=== PATIENT | female | born 1950 | race African-American/Black ===

== ENCOUNTER 2017-03-13 05:35 | Day surgery (SDC) | payer OTHER ==
[~2017-03-13] VITALS: Ht 157.5 cm; Wt 82.3 kg
[~2017-03-13 05:35] MED LIST: ALBU8HFA IH; ALLO300 PO; AMIO100T4 PO; AMIT25TA9 PO; ASPI81 PO; ATOR40TA28 PO; CARV3 PO; DOCU250C91 PO; FLUT50DI2 IH; FURO20 PO; LEVO50CA2 PO; LOSA25TA21 PO; MOME13HF IH; NITR.4 SL; OMEG1CAP2 PO; OMEP20 PO; POTA20TA10 PO; SODIUM CHLORIDE 0.9% 1,000 ML IV ONE; TICA90TA PO
[2017-03-13] MEDS ORDERED: SODIUM CHLORIDE 0.9% 1,000 ML IV ONE (05:43)
[2017-03-13 06:51] LABS: BASOPHILS % (AUTO) 0.5 % (0.0-2.0); EOSINOPHILS % (AUTO) 3.9 % (1.0-6.0); HEMATOCRIT 31.1 % (36-46); HEMOGLOBIN 10.5 g/dL (12.0-16.0); LYMPHOCYTES # (AUTO) 1.5 K/uL (1.0-4.8); LYMPHOCYTES % (AUTO) 34.1 % (22.0-44.0); MEAN CORPUSCULAR HEMOGLOBIN 31.4 pg (26.0-34.0); MEAN CORPUSCULAR HGB CONC 33.6 G/dL (31.0-37.0); MEAN CORPUSCULAR VOLUME 93 fL (80-100); MONOCYTES # (AUTO) 0.3 K/uL (0.1-1.0); MONOCYTES % (AUTO) 7.6 % (2.0-9.0); NEUTROPHILS # (AUTO) 2.4 K/uL (1.8-7.7); NEUTROPHILS % (AUTO) 53.9 % (40.0-70.0); PLATELET COUNT (AUTO) 254 K/uL (150-450); RED BLOOD CELL COUNT(AUTO) 3.34 MIL/uL (4.00-5.20); RED CELL DISTRIBUTION WIDTH 15.3 % (11.5-14.5); WHITE BLOOD COUNT (AUTO) 4.4 K/uL (4.5-11.0)
[2017-03-13 07:02] LABS: INR 1.1 (0.9-1.1); PROTHROMBIN TIME 11.8 SEC (9.4-11.6)
[2017-03-13 07:04] LABS: ANION GAP 8 mmol/L (8-16); CALCIUM, TOTAL 8.8 mg/dL (8.8-10.5); CARBON DIOXIDE 28 mmol/L (22-29); CHLORIDE 104 mmol/L (98-107); CREATININE 1.01 mg/dL (0.60-1.30); GLOMERULAR FILTR. RATE CALC > 60 mL/min (>60); POTASSIUM 3.9 mmol/L (3.5-5.1); SODIUM SERUM 140 mmol/L (136-145); UREA NITROGEN, BLOOD 14 mg/dL (7-18)
[2017-03-13 07:10] LABS: ALANINE AMINOTRANSFERASE 21 U/L (12-78); ALBUMIN 3.8 g/dL (3.4-5.0); ASPARTATE AMINOTRANSFERASE 28 U/L (15-37); BILIRUBIN,TOTAL 0.5 mg/dL (0.1-1.0); TOTAL PROTEIN, SERUM 7.1 g/dL (6.4-8.2)
[2017-03-13] MEDS ORDERED: LIDOCAINE HCL/PF 1% 30 ML VIAL ONE ×2 (07:19→08:20)
[2017-03-13] MEDS ORDERED: HEPARIN SODIUM 1000 UNITS/NS 500 ML ONE (07:19)
[2017-03-13] MEDS ORDERED: IODIXANOL 320 MG/ML 50 ML VIAL ONE ×4 (07:19→08:57)
[2017-03-13 07:34] VITALS: BP 116/87
[2017-03-13] MEDS ORDERED: MIDAZOLAM HCL 2 MG/2 ML VIAL ONE ×2 (07:47→08:27)
[2017-03-13] MEDS ORDERED: HEPARIN SODIUM 1000 UNITS/NS 500 ML IV ONE (08:00)
[2017-03-13] MEDS ORDERED: IODIXANOL 320 MG/ML 50 ML VIAL IARTER ONE ×4 (08:00→09:45)
[2017-03-13] MEDS ORDERED: MIDAZOLAM HCL 2 MG/2 ML VIAL IVP ONE ×3 (08:00→08:45)
[2017-03-13] MEDS ORDERED: LIDOCAINE HCL/PF 1% 30 ML VIAL INJ ONE (08:00)
[2017-03-13] MEDS ORDERED: HEPARIN SODIUM,PORCINE 5,000 UNITS/ML VIAL SQ ONE ×2 (08:45→09:45)
[2017-03-13 09:59] VITALS: BP 140/75
[2017-03-13] MEDS ORDERED: HEPARIN SODIUM,PORCINE 5,000 UNITS/ML VIAL IVP ONE (10:00)
[2017-03-13] MEDS ORDERED: IBUPROFEN 800 MG TABLET PO ONE (11:00)
== END 2017-03-13 14:00 | disposition home or self-care (01) ==
LOC: CATHLAB 05:35 → EDSTATUS 07:30 → CATHLAB 14:00
PROVIDERS: ATTEND Radiology Vascular & Interventional Radiology
DX: I70.211 Atherosclerosis of native arteries of extremities with intermittent claudication, right leg (principal); I70.92 Chronic total occlusion of artery of the extremities; I10 Essential (primary) hypertension; E78.5 Hyperlipidemia, unspecified; E03.9 Hypothyroidism, unspecified; J45.909 Unspecified asthma, uncomplicated; M10.9 Gout, unspecified; Z88.6 Allergy status to analgesic agent; Z79.01 Long term (current) use of anticoagulants; Z98.51 Tubal ligation status; Z90.710 Acquired absence of both cervix and uterus; Z95.5 Presence of coronary angioplasty implant and graft; Z87.891 Personal history of nicotine dependence; Z86.79 Personal history of other diseases of the circulatory system
CPT/HCPCS: 36140; 36415; 37221; 80053; 85025; 85610; 85730; 93005; C1725; C1760; C1769; C1876; C1887; J1644 ×2; J2250; J3490; J7030; Q9967; 36200; 37205; 75630; 75716; 75962

== ENCOUNTER 2022-08-16 06:56 | Inpatient (IN) | payer OTHER ==
[~2022-08-16] VITALS: Ht 157.5 cm; Wt 87.4 kg
[~2022-08-16 06:56] MED LIST changes: +ALLO-45 PO; -ALLO300 PO; +AMIT25TA10 PO; -AMIT25TA9 PO; +APIX5TAB PO; -ASPI81 PO; -ATOR40TA28 PO; +CARV12 PO; -CARV3 PO; +CHOL100062 PO; +DOCU-350 PO; -DOCU250C91 PO; +EZET10TA57 PO; -FURO20 PO; -LEVO50CA2 PO; +LEVO75 PO; -LOSA25TA21 PO; -MOME13HF IH; -NITR.4 SL; -OMEG1CAP2 PO; +POTA-206 PO; -POTA20TA10 PO; +ROSU10TA72 PO; -SODIUM CHLORIDE 0.9% 1,000 ML IV ONE
[2022-08-16] MEDS ORDERED: NITROGLYCERIN 0.4 MG SUBLINGUAL TABLET #25 SL ONE (07:30)
[2022-08-16] MEDS ORDERED: NITROGLYCERIN 2% (1 GM=INCH) OINTMENT PACKET TP ONE (07:30)
[2022-08-16] MEDS ORDERED: ASPIRIN 325 MG TABLET PO ONE (07:30)
[2022-08-16 08:25] LABS: EOSINOPHILS % (AUTO) 4.3 % (1.0-6.0); HEMATOCRIT 29.5 % (36-46); HEMOGLOBIN 10.1 g/dL (12.0-16.0); LYMPHOCYTES # (AUTO) 1.4 K/uL (1.0-4.8); LYMPHOCYTES % (AUTO) 33.6 % (22.0-44.0); MEAN CORPUSCULAR HEMOGLOBIN 31.7 pg (26.0-34.0); MEAN CORPUSCULAR HGB CONC 34.2 G/dL (31.0-37.0); MEAN CORPUSCULAR VOLUME 93 fL (80-100); MONOCYTES # (AUTO) 0.3 K/uL (0.1-1.0); MONOCYTES % (AUTO) 8.3 % (2.0-9.0); NEUTROPHILS # (AUTO) 2.2 K/uL (1.8-7.7); NEUTROPHILS % (AUTO) 52.8 % (40.0-70.0); PLATELET COUNT (AUTO) 215 K/uL (150-450); RED BLOOD CELL COUNT(AUTO) 3.19 MIL/uL (4.00-5.20)
[2022-08-16 08:30] LABS: COVID AG,FIA SOURCE NASOPHARYNGEAL
[2022-08-16 08:35] LABS: ANION GAP 6 mmol/L (8-16); CALCIUM, TOTAL 8.9 mg/dL (8.8-10.5); CARBON DIOXIDE 30 mmol/L (22-29); CHLORIDE 106 mmol/L (98-107); CREATININE 1.08 mg/dL (0.60-1.30); GLOMERULAR FILTR. RATE CALC > 60 mL/min (>60); GLUCOSE,RANDOM 92 mg/dL (70-110); POTASSIUM 4.2 mmol/L (3.5-5.1); SODIUM SERUM 142 mmol/L (136-145); UREA NITROGEN, BLOOD 9 mg/dL (7-18)
[2022-08-16 08:41] LABS: ALANINE AMINOTRANSFERASE 17 U/L (12-78); ALBUMIN 3.7 g/dL (3.4-5.0); ALKALINE PHOSPHATASE 45 U/L (46-116); ASPARTATE AMINOTRANSFERASE 26 U/L (15-37); BILIRUBIN,TOTAL 0.7 mg/dL (0.1-1.0); LIPASE 91 U/L (73-393); TOTAL PROTEIN, SERUM 7.1 g/dL (6.4-8.2)
[2022-08-16 08:47] LABS: B-TYPE NATRIURETIC PEPTIDE 24 pg/mL (0-100)
[2022-08-16 09:07] LABS: APPEARANCE,URINE CLEAR (CLEAR); BILIRUBIN,URINE NEGATIVE (NEGATIVE); GLUCOSE, URINE (UA) NEGATIVE (NEGATIVE); KETONES,URINE NEGATIVE (NEGATIVE); LEUKOCYTE ESTERASE ,URINE NEGATIVE (NEGATIVE); NITRATE,URINE NEGATIVE (NEGATIVE); OCCULT BLOOD,URINE NEGATIVE (NEGATIVE); PH,URINE 6.5 (5.0-8.0); PROTEIN,URINE NEGATIVE (NEGATIVE); SPECIFIC GRAVITIY, URINE 1.006 (1.003-1.030); UROBILINOGEN,URINE <=1.0 mg/dL (<=1.0)
[2022-08-16 09:19] LABS: INFLUENZA TYPE A NEGATIVE FOR TYPE A (NEGATIVE); INFLUENZA TYPE B NEGATIVE FOR TYPE B (NEGATIVE)
[2022-08-16 09:28] LABS: RBC,URINE None Seen /HPF (0-2)
[2022-08-16 09:29] LABS: BACTERIA,URINE None Seen /HPF (None Seen); SQUAMOUS EPITHELIAL CELL,UR Few /LPF (None Seen); WBC,URINE None Seen /HPF (0-5)
[2022-08-16] MEDS ORDERED: ACETAMINOPHEN 325 MG TABLET PO PRN (14:15)
[2022-08-16] MEDS ORDERED: BISACODYL 10 MG RECTAL RECTAL SUPPOSITORY PR PRN (14:15)
[2022-08-16] MEDS ORDERED: MAGNESIUM HYDROXIDE SUSPENSION 30 ML UDCUP PO PRN (14:15)
[2022-08-16] MEDS ORDERED: ZOLPIDEM TARTRATE 5 MG TABLET PO PRN (14:15)
[2022-08-16] MEDS ORDERED: ONDANSETRON HCL 4 MG/2 ML VIAL IVP PRN (14:15)
[2022-08-16] MEDS ORDERED: TICA60TA PO (14:25)
[2022-08-16] MEDS ORDERED: TIOT4MIS5 IH (14:37)
[2022-08-16] MEDS ORDERED: CARV25 PO (14:37)
[2022-08-16] MEDS ORDERED: FURO40TA5 PO (14:37)
[2022-08-16] MEDS ORDERED: POTA8TAB72 PO (14:37)
[2022-08-16] MEDS ORDERED: SEMA0.25 SQ (14:37)
[2022-08-16] MEDS ORDERED: CILO50TA2 PO (14:37)
[2022-08-16] MEDS ORDERED: ROSU20TA73 PO (14:37)
[2022-08-16] MEDS ORDERED: ESTR10TA4 VG (14:37)
[2022-08-16] MEDS ORDERED: NITR0.4T50 SL (14:37)
[2022-08-16] MEDS ORDERED: ASPI-1451 PO (14:37)
[2022-08-16] MEDS ORDERED: CETI10TA58 PO (14:37)
[2022-08-16] MEDS ORDERED: ISOS30TA92 PO (14:37)
[2022-08-16] MEDS ORDERED: IBUP-2077 PO (14:37)
[2022-08-16] MEDS ORDERED: MONT-40 PO (14:37)
[2022-08-16 21:00] VITALS: BP 130/67
[2022-08-16] MEDS: CARVEDILOL 12.5 MG TABLET PO SCH (21:00)
[2022-08-16] MEDS: AMITRIPTYLINE HCL 25 MG TABLET PO SCH (21:00)
[2022-08-16] MEDS: AMIODARONE HCL 200 MG TABLET PO SCH (22:00)
[2022-08-16] MEDS: DOCUSATE SODIUM 100 MG CAPSULE PO SCH (22:00)
[2022-08-16] MEDS: ROSUVASTATIN CALCIUM 10 MG TABLET PO SCH (23:00)
[2022-08-17] MEDS: ROSUVASTATIN CALCIUM 10 MG TABLET PO SCH (00:31)
[2022-08-17] MEDS: AMITRIPTYLINE HCL 25 MG TABLET PO SCH (00:32)
[2022-08-17 00:53] VITALS: BP 121/68
[2022-08-17 04:00] VITALS: BP 120/74
[2022-08-17] MEDS ORDERED: LEVOTHYROXINE SODIUM 75 MCG TABLET PO SCH (06:30)
[2022-08-17 07:48] VITALS: BP 116/64
[2022-08-17] MEDS ORDERED: ALLOPURINOL 300 MG TABLET PO SCH (09:00)
[2022-08-17] MEDS ORDERED: EZETIMIBE 10 MG TABLET PO SCH (09:00)
[2022-08-17] MEDS ORDERED: PANTOPRAZOLE SODIUM 40 MG DR TABLET PO SCH (09:00)
[2022-08-17] MEDS ORDERED: ASPIRIN 81 MG CHEWABLE TABLET PO SCH (09:00)
[2022-08-17] MEDS: DOCUSATE SODIUM 100 MG CAPSULE PO SCH (09:00)
[2022-08-17] MEDS: CARVEDILOL 12.5 MG TABLET PO SCH (09:28)
[2022-08-17] MEDS: AMIODARONE HCL 200 MG TABLET PO SCH (09:29)
== END 2022-08-17 15:15 | disposition home or self-care (01) | DRG 313 ==
LOC: EMS 06:57 → AHU 09:28 → 5S 18:55
PROVIDERS: ADMIT Hospitalist; ATTEND Hospitalist
DX: R07.89 Other chest pain (principal); I25.110 Atherosclerotic heart disease of native coronary artery with unstable angina pectoris; E78.5 Hyperlipidemia, unspecified; Z96.651 Presence of right artificial knee joint; Z20.822 Contact with and (suspected) exposure to COVID-19; J44.9 Chronic obstructive pulmonary disease, unspecified; I73.9 Peripheral vascular disease, unspecified; I48.0 Paroxysmal atrial fibrillation; I11.9 Hypertensive heart disease without heart failure; D63.8 Anemia in other chronic diseases classified elsewhere; E03.9 Hypothyroidism, unspecified; Z95.5 Presence of coronary angioplasty implant and graft; I25.2 Old myocardial infarction; Z90.711 Acquired absence of uterus with remaining cervical stump; Z79.01 Long term (current) use of anticoagulants; Z88.5 Allergy status to narcotic agent; Z79.899 Other long term (current) drug therapy
CPT/HCPCS: 71045; 80053; 81001; 83690; 83880; 84484; 85025; 87804; 93005; 93306; 99291; 36415-L1; 36415-TC